=== PATIENT | male | born 1975 | race Caucasian/White ===

== ENCOUNTER 2018-10-05 21:19 | Observation (INO) ==
[2018-10-05] MEDS ORDERED: Morphine Sulfate Inj 2 MG/ML Vial IV.PUSH ONE (22:28)
--- NOTE | 2018-10-05 22:37 | ED ---
HPI General Chief Complaint: Chest Pain Stated Complaint: Chest Pain Time Seen by Provider: 10/05/18 22:18 Source: patient Mode of arrival: ambulatory Limitations: no limitations History of Present Illness HPI narrative: Patient is a 43-year-old male presenting to the emergency department for evaluation of chest pain. Patient states the pain started 1 hour prior to arrival, he states the pain radiates across his chest wall and feels tight and pressure-like. He rates his pain a 6 out of 10. Patient states the pain started at rest, does not radiate to his arm or jaw. He denies any back pain, abdominal pain, nausea, dizziness, headache, shortness of breath. Patient reports a history of coronary artery disease status post CABG, hypertension, hyperlipidemia, current IV heroin use. Symptoms started abruptly , symptoms are not influenced by activity. No alleviating factors. MD complaint: Reports chest pain STEMI Alert: No Onset (ago): hour(s) Duration: constant Onset: during rest Pain location: Reports left chest and right chest Severity: moderate Severity scale (1-10): 6 Quality: Reports tightness and heaviness Pain radiation: Reports none Relieving factors: nothing Exacerbating factors: nothing Treatments prior to arrival chest pain: Reports none Related Data Home Medications Medication Instructions Recorded Confirmed metoprolol tartrate 25 mg PO BID 10/05/18 10/05/18 Allergies Allergy/AdvReac Type Severity Reaction Status Date / Time penicillin G Allergy Severe Anaphylaxis Verified 10/05/18 21:29 shrimp Allergy Severe Anaphylaxis Verified 10/05/18 21:29 Review of Systems ROS: all other systems reviewed are negative [facility] Medical History Medical History Chronic back pain (Acute) HTN (hypertension) (Acute) Hypercholesteremia (Acute) Myocardial infarction (Acute) Surgical History Surgical History History of cardiac cath (Acute) S/P CABG x 3 (Acute) Social History Social History Substance History: Active Abuse Second Hand Smoke Exposure: Yes Smoking Status: Current every day smoker Tobacco Type: Cigarettes How Often Do You Have a Drink Containing Alcohol: Never Recent Travel in [facility] within the Last 8 Weeks: No Recent Out of Country Travel within the Last 8 Weeks: No Substance Abuse Detail Heroin: Substance Use Status: Active Route Used Substance Abuse: Intravenously Reason for Use: Get High Immunization History Tetanus Immunization: Unsure Exam Narrative Exam Narrative: GENERAL: Well-developed, well-nourished, alert male. Presenting in no acute distress. SKIN: Focused skin assessment warm/dry. HEAD: Atraumatic. Normocephalic. EYES: Pupils equal and round. No scleral icterus. No injection or drainage. ENT: No nasal bleeding or discharge. Mucous membranes pink and moist. NECK: Trachea midline. No JVD. CARDIOVASCULAR: Regular rate and rhythm. Murmur appreciated. RESPIRATORY: No accessory muscle use. Clear to auscultation. Breath sounds equal bilaterally. GASTROINTESTINAL: Abdomen soft, non-tender, nondistended. Hepatic and splenic margins not palpable. MUSCULOSKELETAL: No obvious deformities. No clubbing. No cyanosis. No edema. NEUROLOGICAL: Awake and alert. No obvious cranial nerve deficits. Motor grossly within normal limits. Normal speech. PSYCHIATRIC: Appropriate mood and affect; insight and judgment normal. Course Initial Documented Vital Signs Temperature 99.2 F 10/05/18 21:29 Pulse Rate 96 H 10/05/18 21:29 Respiratory Rate 16 10/05/18 21:29 Blood Pressure 155/64 H 10/05/18 21:29 Pulse Oximetry 98 10/05/18 21:29 Last Documented Vital Signs Temperature 99.2 F 10/05/18 21:29 Pulse Rate 81 10/05/18 23:55 Respiratory Rate 18 10/05/18 23:55 Blood Pressure 111/55 L 10/05/18 23:55 Pulse Oximetry 97 10/05/18 23:55 Medical Decision Making [facility] Narrative Medical decision making narrative: Patient is a 43-year-old male that presented to emerge from for evaluation of chest pain started abruptly 1 hour prior to arrival. Labs and imaging ordered and pending. Patient's vital signs are stable. IV access was established and patient was placed on telemetry to monitor continuous pulse oximetry. Patient was given aspirin, nitroglycerin and morphine. Will reassess. Pt was reassessed and was resting comfortably. VS remain stable. Labs reviewed, no acute findings. Initial EKG reviewed by my attending. Due to patients PMHx and presenting complaint pt will be placed in [facility]. Pt is agreeable. Orders placed. Medical Screen Exam Complete: Yes Emergency Medical Condition: Yes Differential Diagnosis Differential Diagnosis: ACS vs [place] vs arrhythmia vs metabolic abnormality vs substance abuse vs other Medical Records Medical records reviewed: Yes I reviewed the patient's medical records. Lab Data Lab results reviewed: Yes I reviewed the patient's lab results. Result diagrams: 10/05/18 22:40 10/05/18 22:40 Lab Results 10/05/18 10/05/18 10/05/18 Range/Units 22:40 22:40 22:40 WBC 5.9 (4.0-11.0) th/mm3 RBC 5.24 (4.50-5.90) mil/mm3 Hgb 14.9 (13.0-17.0) gm/dL Hct 45.0 (39.0-51.0) % MCV 85.8 (80.0-100.0) fL MCH 28.3 (27.0-34.0) pg MCHC 33.0 (32.0-36.0) % RDW 13.5 (11.6-17.2) % Plt Count 244 (150-450) th/mm3 MPV 8.1 (7.0-11.0) fL Neut % (Auto) 53.1 (16.0-70.0) % Lymph % (Auto) 31.5 (9.0-44.0) % [place] % (Auto) 11.8 H (0.0-8.0) % Eos % (Auto) 3.1 (0.0-4.0) % Baso % (Auto) 0.5 (0.0-2.0) % Neut # (Auto) 3.1 (1.8-7.7) th/mm3 Lymph # (Auto) 1.9 (1.0-4.8) th/mm3 [place] # (Auto) 0.7 (0.0-0.9) th/mm3 Eos # (Auto) 0.2 (0.0-0.4) th/mm3 Baso # (Auto) 0.0 (0.0-0.2) th/mm3 WBC Differential . Differential Comment Auto diff final PT 11.1 (9.8-11.6) sec INR 1.1 Ratio APTT 33.8 H (23.4-31.7) sec Sodium 139 (136-145) meq/L Potassium 4.1 (3.5-5.1) meq/L Chloride 102 (98-107) meq/L Carbon Dioxide 30.9 (21.0-32.0) meq/L Anion Gap 6 (5-15) meq/L BUN 21 H (7-18) mg/dL Creatinine 0.96 (0.60-1.30) mg/dL Estimated GFR 85 L (>89) mL/min Random Glucose 96 (74-106) mg/dL Calcium 8.5 (8.5-10.1) mg/dL Magnesium 2.2 (1.5-2.5) mg/dL Total Bilirubin 0.8 (0.2-1.0) mg/dL AST 64 H (15-37) U/L ALT 93 H (12-78) U/L Alkaline Phosphatase 136 H (45-117) U/L Total Creatine Kinase 243 (39-308) U/L CK-MB (CK-2) 1.8 (0.5-3.6) ng/mL Troponin I Less than 0.02 L (0.02-0.05) ng/mL Total Protein 7.9 (6.4-8.2) g/dL Albumin 3.4 (3.4-5.0) g/dL Lipase 57 L (73-393) U/L Imaging Data Radiologist's impression: Chest X-Ray 10/05/18 22:20 CONCLUSION: No acute cardiopulmonary disease demonstrated. Discharge Plan Discharge Disposition Patient Disposition: ED Admit(ED Internal Use Only) Discharge Condition Condition: Stable Discharge Order Discharge Orders: ED Use Only Admit Order (Routine); Ordered 10/06/18 Ordered By: Opal Chatterjee Discharge Details Diagnosis: Atypical chest pain Physicians Team ED Provider: Nicholas Sheikh ED Midlevel Provider: Oapl Chatterjee Primary Care Provider: Primary Care Elva Monge Attending Provider: Laci Simmons Rxs /Orders / Referrals /Forms Prescriptions: No Action metoprolol tartrate 25 mg Tablet 25 mg PO BID RF: 0 Discharge Instructions Patient Printed Instructions: Chest Pain (ED) Discharge Interventions Interventions: Vital Signs Last Done: 10/05/18 22:22 Status ED Status: Admitted Observation Patient
--- NOTE | 2018-10-05 22:45 | XR ---
EXAM DATE: 10/05/2018 10:35 PM EST AGE/SEX: 43 years / Male INDICATIONS: Chest pain. CLINICAL DATA: This is the patient's initial encounter. Patient reports that signs and symptoms have been present for 1 day and indicates a pain score of 10/10. MEDICAL/SURGICAL HISTORY: Cardiovascular disease. CABG. COMPARISON: [facility] [place], CHEST SINGLE AP, 09/22/2016. . FINDINGS: A single AP view of the chest demonstrates the lungs to be symmetrically aerated without evidence of mass, infiltrate or effusion. The cardiomediastinal contours are unremarkable. Osseous structures a re intact. Patient has had previous median sternotomy and coronary artery bypass graft operation. CONCLUSION: No acute cardiopulmonary disease demonstrated. Electronically signed by: Palmer Dhaliwal MD 10/05/2018 10:44 PM EST
[2018-10-05 22:54] LABS: Baso % (Auto) 0.5 % (0.0-2.0); Eos # (Auto) 0.2 th/mm3 (0.0-0.4); Eos % (Auto) 3.1 % (0.0-4.0); Hemoglobin 14.9 gm/dL (13.0-17.0); Lymph # (Auto) 1.9 th/mm3 (1.0-4.8); Lymph % (Auto) 31.5 % (9.0-44.0); Mean Corpuscular Hemoglobin 28.3 pg (27.0-34.0); Mean Corpuscular Volume 85.8 fL (80.0-100.0); Mean Platelet Volume 8.1 fL (7.0-11.0); Mono # (Auto) 0.7 th/mm3 (0.0-0.9); Mono % (Auto) 11.8 % (0.0-8.0); Neut # (Auto) 3.1 th/mm3 (1.8-7.7); Neut % (Auto) 53.1 % (16.0-70.0); Platelet Count 244 th/mm3 (150-450); Red Blood Count 5.24 mil/mm3 (4.50-5.90); Red Cell Distribution Width 13.5 % (11.6-17.2); White Blood Count 5.9 th/mm3 (4.0-11.0)
[2018-10-05 23:22] LABS: Activated Partial Thrombo Time 33.8 sec (23.4-31.7); INR 1.1 Ratio; Prothrombin Time 11.1 sec (9.8-11.6)
[2018-10-05 23:32] LABS: Alkaline Phosphatase 136 U/L (45-117); Creatine Kinase 243 U/L (39-308); Total Protein 7.9 g/dL (6.4-8.2)
[2018-10-05 23:45] LABS: Alanine Aminotransferase 93 U/L (12-78); Albumin 3.4 g/dL (3.4-5.0); Anion Gap 6 meq/L (5-15); Aspartate Aminotransferase 64 U/L (15-37); Blood Urea Nitrogen 21 mg/dL (7-18); Calcium 8.5 mg/dL (8.5-10.1); Carbon Dioxide 30.9 meq/L (21.0-32.0); Chloride 102 meq/L (98-107); Creatine Kinase MB 1.8 ng/mL (0.5-3.6); Glomerular Filtration Rate 85 mL/min (>89); Glucose,Random 96 mg/dL (74-106); Lipase 57 U/L (73-393); Magnesium 2.2 mg/dL (1.5-2.5); Potassium 4.1 meq/L (3.5-5.1); Sodium 139 meq/L (136-145)
[2018-10-06] MEDS ORDERED: Acetaminophen 500 MG Tablet PO PRN (00:20)
[2018-10-06] MEDS ORDERED: Morphine Inj 4 MG/ML Vial IV.PUSH PRN (00:20)
[2018-10-06 01:00] LABS: Amphetamine Screen,Urine Neg (Neg); Barbiturate Screen,Urine Neg (Neg); Cannabinoid Screen,Urine Neg (Neg); Cocaine Screen,Urine Neg (Neg)
[2018-10-06 01:02] LABS: Bilirubin,Urine Negative (Negative); Clarity,Urine Clear (Clear); Color,Urine Yellow (Yellw/Straw); Glucose,Urine (UA) Negative (Negative); Leukocyte Esterase,Urine Negative (Negative); Mucus,Urine Few /lpf (Occasional); Nitrite,Urine Negative (Negative); Specific Gravity,Urine 1.026 (1.002-1.035); Urobilinogen,Urine 4 or Greater mg/dL (Less than 2)
[2018-10-06 01:03] LABS: Opiate Screen,Urine Pos (Neg)
[2018-10-06 02:47] LABS: Creatine Kinase 220 U/L (39-308)
[2018-10-06 07:00] LABS: Creatine Kinase 165 U/L (39-308)
--- NOTE | 2018-10-06 09:57 | P.HPCA ---
History of Present Illness Primary Care Physician: No Primary Care Physician Chief Complaint: Chest pain History of Present Illness: This is a 43-year-old male with history of CAD with a three-vessel bypass July 2016, hypertension, hyperlipidemia, and continued IV heroin abuse that presents to ED to be evaluated for chest discomfort. The pain began yesterday and lasted a couple hours. It was a pressure. It was a 6 out of 10. Discomfort did not radiate. Found nothing to worsen or improve it. He rarely admits to continued IV heroin abuse. States he injects on average twice a day and last time injecting heroin was yesterday morning. States that he had a recent cardiac workup at a [facility] near [place] and believes it was the summer. States that he had a stress test and was advised to have cardiac catheterization afterwards however he states he has no insurance and no money and left. He does not follow with hardwood finisher. He takes metoprolol and aspirin daily and sometimes will take his cholesterol medicine if he has it on hand. Currently denies chest discomfort. History of CAD with three-vessel bypass July 2016. Hypertension, hyperlipidemia, IV drug abuse. Noncompliance. Denies diabetes. There is family history of CAD. Continues IV heroin abuse. Continues smoke 1 pack of cigarettes a day and has done so for 25-30 years. States that he does not drink alcohol. - Diagnosis (1) Chest pain (2) CAD (coronary artery disease) (3) Status post coronary artery bypass graft (4) Hypertension (5) Hyperlipidemia (6) Heroin abuse Review of Systems General: Patient denies fevers, chills, and recent travel. HEENT: Patient denies headache, sore throat, difficulty swallowing. Cardiovascular: Has the chest discomfort as mentioned above. Denies sensation of heart beating rapidly or irregularly. No syncope. Denies diaphoresis. Respiratory: He was short of breath. Denies inspirational chest discomfort. Denies coughing wheezing or hemoptysis. GI: Patient denies nausea, vomiting, diarrhea, abdominal pain, bloody stools. Musculoskeletal: Patient denies joint pain or edema. Denies calf pain or edema. Neurovascular: Patient denies numbness, tingling, weakness in extremities. Denies headache. Endocrine: Denies polyuria and polydipsia. Hematologic: Denies easy bruising. Skin: Denies rash or itching. PMFSH - History History Provided By: Patient - Medical History Medical History: Medical History (Last Reviewed 10/05/18 @ 23:32 by MILLICENT Crodero) Chronic back pain HTN (hypertension) Hypercholesteremia Myocardial infarction - Surgical History Surgical History: Surgical History (Last Reviewed 10/05/18 @ 23:32 by MILLICENT Cordero) History of cardiac cath S/P CABG x 3 - Tobacco History Second Hand Smoke Exposure: Yes Tobacco Use In Past 30 Days: Yes Smoking Status: Current every day smoker Tobacco Type: Cigarettes - Alcohol History How Often Do You Have a Drink Containing Alcohol: Never - Substance Use History Substance History: Active Abuse - Substance Use Type Heroin Status: Active Route Used: Intravenously Reason for Use: Get High - Travel History Recent Travel in the [place] Within the Last 8 Weeks: No Recent Travel Out of the Country Within the Last 8 Weeks: No - Immunization History Tetanus Immunization: Unsure Medications and Allergies Active Medications: Active Medications Acetaminophen (Tylenol) 500 mg PO Q4H PRN PRN Reason: HEADACHE Morphine Sulfate (Morphine Inj) 2 mg IV.PUSH Q4H PRN PRN Reason: PAIN SCALE 8 TO 10 Ondansetron HCl (Zofran Inj) 4 mg IV.PUSH Q6H PRN PRN Reason: NAUSEA Sodium Chloride (Ns Flush) 2 ml IV.FLUSH UNSCH PRN PRN Reason: FLUSH AFTER USING IV ACCESS Sodium Chloride (Ns Flush) 2 ml IV.FLUSH PRN PRN PRN Reason: FLUSH AFTER USING IV ACCESS Sodium Chloride (Ns Flush) 2 ml IV.FLUSH BID SKYE Allergies Allergy/AdvReac Type Severity Reaction Status Date / Time penicillin G Allergy Severe Anaphylaxis Verified 10/05/18 21:29 shrimp Allergy Severe Anaphylaxis Verified 10/05/18 21:29 Home Medications Medication Instructions Recorded Confirmed Type metoprolol tartrate 25 mg PO BID 10/05/18 10/05/18 History Exam Vital signs: Vital Signs 10/05/18 21:29 10/05/18 22:22 10/05/18 22:32 Temperature 99.2 F Pulse Rate 96 H 86 Respiratory Rate 16 18 Blood Pressure 155/64 H 125/73 Pulse Oximetry 98 99 98 10/05/18 23:55 10/06/18 02:00 10/06/18 03:15 Temperature Pulse Rate 81 79 74 Respiratory Rate 18 18 18 Blood Pressure 111/55 L 104/70 105/78 Pulse Oximetry 97 98 10/06/18 05:59 10/06/18 08:10 Temperature 98.4 F Pulse Rate 76 70 Respiratory Rate 16 15 Blood Pressure 94/50 L 105/57 L Pulse Oximetry Intake & Output 10/05/18 10/06/18 10/06/18 18:59 06:59 18:59 Weight 67 kg Narrative: GENERAL: This is a well-nourished, well-developed patient, in no apparent distress. Patient speaks in clear complete sentences. Patient is pleasant. HEENT: Head is atraumatic and normocephalic. Neck is supple without lymphadenopathy and trachea is midline. No JVD or carotid bruits. CARDIOVASCULAR: Regular rate and rhythm without murmurs, gallops, or rubs. RESPIRATORY: Clear to auscultation. Breath sounds equal bilaterally. No wheezes , rales, or rhonchi. Chest wall is nontender. No use of accessory muscles. GASTROINTESTINAL: Abdomen is nontender, nondistended. Abdomen soft. No obvious pulsatile mass or bruit. No CVA tenderness. Strong femoral pulses bilaterally. Normal bowel sounds in all quadrants. MUSCULOSKELETAL: Patient is moving upper and lower extremities freely. No calf tenderness or edema, no Homans sign. Strong pulses in upper and lower extremities. NEUROLOGICAL: Patient is alert and oriented. Cranial nerves 2-12 are grossly intact. No focal deficits and speech is clear. SKIN: No rash and turgor is normal. Results 10/05/18 22:40 10/05/18 22:40 Cardiac Enzymes 10/05/18 10/06/18 10/06/18 Range/Units 22:40 02:00 06:00 AST 64 H (15-37) U/L CK-MB (CK-2) 1.8 (0.5-3.6) ng/mL Troponin I Less than 0.02 L Less than 0.02 L Less than 0.02 L (0.02-0.05) ng/mL Coagulation 10/05/18 Range/Units 22:40 PT 11.1 (9.8-11.6) sec APTT 33.8 H (23.4-31.7) sec CBC 10/05/18 Range/Units 22:40 WBC 5.9 (4.0-11.0) th/mm3 RBC 5.24 (4.50-5.90) mil/mm3 Hgb 14.9 (13.0-17.0) gm/dL Hct 45.0 (39.0-51.0) % Plt Count 244 (150-450) th/mm3 Neut # (Auto) 3.1 (1.8-7.7) th/mm3 Lymph # (Auto) 1.9 (1.0-4.8) th/mm3 [place] # (Auto) 0.7 (0.0-0.9) th/mm3 Eos # (Auto) 0.2 (0.0-0.4) th/mm3 Baso # (Auto) 0.0 (0.0-0.2) th/mm3 Comprehensive Metabolic Panel 10/05/18 Range/Units 22:40 Sodium 139 (136-145) meq/L Potassium 4.1 (3.5-5.1) meq/L Chloride 102 (98-107) meq/L Carbon Dioxide 30.9 (21.0-32.0) meq/L BUN 21 H (7-18) mg/dL Creatinine 0.96 (0.60-1.30) mg/dL Calcium 8.5 (8.5-10.1) mg/dL AST 64 H (15-37) U/L ALT 93 H (12-78) U/L Alkaline Phosphatase 136 H (45-117) U/L Total Protein 7.9 (6.4-8.2) g/dL Albumin 3.4 (3.4-5.0) g/dL Intake and Output 10/05/18 10/06/18 10/06/18 22:59 06:59 14:59 Other: Weight 67 kg - Imaging and Cardiology Imaging: Impressions Chest X-Ray 10/05/18 22:20 CONCLUSION: No acute cardiopulmonary disease demonstrated. EKG interpretations - EKG EKG shows: sinus rhythm (EKG is a sinus rhythm without significant ST segment depressions or elevations.) Caprini VTE Risk Assessment Caprini VTE Risk Assessment: No/Low Risk (score <= 1) Caprini Risk Assessment Model: Point Value = 1 Point Value = 2 Point Value = 3 Point Value = 5 Age 41-60 Minor surgery BMI > 25 kg/m2 Swollen legs Varicose veins or History of unexplained or recurrent spontaneous Oral contraceptives or hormone replacement Sepsis (< 1 month) Serious lung disease, including pneumonia (< 1 month) Abnormal pulmonary function Acute myocardial infarction Congestive heart failure (< 1 month) History of inflammatory bowel disease Medical patient at bed rest Age 61-74 Arthroscopic surgery Major open surgery (> 45 min) Laparoscopic surgery (> 45 min) Malignancy Confined to bed (> 72 hours) Immobilizing plaster cast Central venous access Age >= 75 History of VTE Family history of VTE Factor V Leiden Prothrombin 25127T Lupus anticoagulant Anticardiolipin antibodies Elevated serum homocysteine Heparin-induced thrombocytopenia Other congenital or acquired thrombophilia Stroke (< 1 month) Elective arthroplasty Hip, pelvis, or leg fracture Acute spinal cord injury (< 1 month) Prophylaxis Regimen: Total Risk Factor Score Risk Level Prophylaxis Regimen 0-1 Low Early ambulation 2 Moderate Order ONE of the following: *Sequential Compression Device (SCD) *Heparin 5000 units SQ BID 3-4 Higher Order ONE of the following medications: *Heparin 5000 units SQ TID *Enoxaparin/Lovenox 40 mg SQ daily (WT < 150 kg, CrCl > 30 mL/min) *Enoxaparin/Lovenox 30 mg SQ daily (WT < 150 kg, CrCl > 10-29 mL/min) *Enoxaparin/Lovenox 30 mg SQ BID (WT < 150 kg, CrCl > 30 mL/min) AND/OR *Sequential Compression Device (SCD) 5 or more Highest Order ONE of the following medications: *Heparin 5000 units SQ TID (Preferred with Epidurals) *Enoxaparin/Lovenox 40 mg SQ daily (WT < 150 kg, CrCl > 30 mL/min) *Enoxaparin/Lovenox 30 mg SQ daily (WT < 150 kg, CrCl > 10-29 mL/min) *Enoxaparin/Lovenox 30 mg SQ BID (WT < 150 kg, CrCl > 30 mL/min) AND *Sequential Compression Device (SCD) Assessment and Plan - Assessment (1) Chest pain Code(s): R07.9 - Chest pain, unspecified Status: Acute (2) CAD (coronary artery disease) Code(s): I25.10 - Atherosclerotic heart disease of [place] coronary artery without angina pectoris Status: Acute (3) Status post coronary artery bypass graft Code(s): Z95.1 - Presence of aortocoronary bypass graft Status: Acute (4) Hypertension Code(s): I10 - Essential (primary) hypertension Status: Acute (5) Hyperlipidemia Code(s): E78.5 - Hyperlipidemia, unspecified Status: Acute (6) Heroin abuse Code(s): F11.10 - Opioid abuse, uncomplicated Status: Acute - Plan * Chest pain: Patient has had serial cardiac enzymes and EKGs for ruling out purposes. He was seen by Dr. Parks of cardiology and the chest pain center. After discussing with him and examining him Dr. Parks believe the patient will be a poor candidate for revascularization if needed as he is noncompliant and continue to abuse IV heroin. However we will get records to see if he did have a stress test and if so was abnormal and if cardiac catheterization was recommended. Further plan pending results of his records. * CAD: History of prior CABG. He will need to follow-up with a hardwood finisher on outpatient basis. He should continue his medications as instructed by his hardwood finisher. We are waiting to obtain records from a recent Cardiologic workup at a [facility] facility. * Hypertension: Continue medication. * Hyperlipidemia: Continue medication. * Tobacco abuse: Patient counseled on the importance of smoking cessation. * IV heroin use: Patient has been counseled on the importance of never using IV heroin or any other illicit drugs again as this could kill him. Patient is stable at this time. He is agreeable to this plan.
[2018-10-06] MEDS ORDERED: Aspirin 325 MG Tablet PO SCH (10:30)
[2018-10-06] MEDS ORDERED: Sod Chloride 0.9% Inj 1,000 ML IV.CONT SCH (12:30)
[2018-10-06] MEDS ORDERED: Regadenoson Inj 0.4 MG/5 ML Syringe IV.PUSH ONE (13:52)
--- NOTE | 2018-10-06 15:51 | NM ---
EXAM DATE: 10/06/2018 3:47 PM EST AGE/SEX: 43 years / Male INDICATIONS:Angina. Myocardial infarction CLINICAL DATA: This is the patient's initial encounter. Patient reports that signs and symptoms have been present for 1 day and indicates a pain score of 7/10. MEDICAL/SURGICAL HISTORY: Hypertension. Coronary artery stent. CABG. COMPARISON: No prior exams available for comparison. DOSE: 8.6 mCi Tc 99m Myoview at rest 26.4 mCi [id number] at stress 0.4 mg Lexiscan STRESS SYMPTOMS: Dyspnea. EJECTION FRACTION: 61 % TECHNIQUE: The patient underwent pharmacologic stress with infusion of prescribed dose. Continuous ECG tracing was monitored during stress. Gated SPECT imaging was performed after stress and conventi onal SPECT imaging was performed at rest. The examination was performed on a SPECT/CT scanner, both attenuation and non-corrected datasets were reviewed. FINDINGS: Distribution: The maximum perfused segment at stress is in the inferior wall. Perfusion Study: The pattern of perfusion at stress is within normal limits. Gated Study: There are intact wall motion and wall thickening without hypokinetic or dyskinetic segm ents. The ejection fraction is calculated at 61%. RISK CATEGORY: Low (<1% Annual Motality Rate) CONCLUSION: No areas of ischemia are seen. Electronically signed by: Palmer Brink MD 10/06/2018 3:50 PM EST
--- NOTE | 2018-10-06 16:59 | TR ---
Date Performed: 10/06/2018 Time Performed: 14:01:16 DOCTOR: Xiao Parks DRUG LIST: CLINICAL HISTORY: REASON FOR TEST: REASON FOR ENDING: OBSERVATION: CONCLUSION: Lexiscan stress test was performed under standard four minute protocol. Radionuclid e was injected one minute prior to ending the test. No electrocardiographic abormalities were present to suggest ischemia, though T wave inversions were noted. Nuclear imaging and interpretation are jaci bauer. COMMENTS: Lexiscan stress test was performed under standard four minute protocol. Radionuclide was injected one minute prior to ending the test. No electrocardiographic abormalities were present t o suggest ischemia, though T wave inversions were noted. Nuclear imaging and interpretation are yung delgado.
--- NOTE | 2018-10-06 17:07 | ECG ---
Date Performed: 10/06/2018 Time Performed: 02:09:21 PTAGE: 43 years EKG: Sinus rhythm WITH SINUS ARRHYTHMIA MODERATE T-WAVE ABNORMALITY, CONSIDER ANTERIOR ISCHEMIA ABNORMAL ECG Since PREVIOUS TRACING , no significant change noted PREVIOUS TRACIN09/22/2016 21.08 DOCTOR: Xiao Parks Interpretating Date/Time 10/06/2018 17:06:16
--- NOTE | 2018-10-06 17:07 | ECG ---
Date Performed: 10/06/2018 Time Performed: 05:44:22 PTAGE: 43 years EKG: SINUS BRADYCARDIA WITH SINUS ARRHYTHMIA PROLONGED QT INTERVAL ABNORMAL ECG Since PREVIOUS TRACING , no significant change noted PREVIOUS TRACIN10/06/2018 02.09 DOCTOR: Xiao Parks Interpretating Date/Time 10/06/2018 17:05:34
--- NOTE | 2018-10-06 17:08 | ECG ---
Date Performed: 10/05/2018 Time Performed: 21:37:16 PTAGE: 43 years EKG: Sinus rhythm NORMAL ECG Since PREVIOUS TRACING , no significant change noted DOCTOR: Xiao Parks Interpretating Date/Time 10/06/2018 17:06:42
== END 2018-10-06 18:44 | disposition home or self-care (01) ==
LOC: NEDA 21:19 → NEPE 21:19 → NEDA 10-06 02:38 → NEDH 10-06 04:59 → NEPFCDU 10-06 10:58
PROVIDERS: ADMIT Internal Medicine Cardiovascular Disease; ATTEND Internal Medicine Cardiovascular Disease
DX: Z79.82 Long term (current) use of aspirin; E78.00 Pure hypercholesterolemia, unspecified; Z95.1 Presence of aortocoronary bypass graft; Z91.19 Patient's noncompliance with other medical treatment and regimen; I10 Essential (primary) hypertension; R94.31 Abnormal electrocardiogram [ECG] [EKG]; F11.10 Opioid abuse, uncomplicated; M54.9 Dorsalgia, unspecified; Z82.49 Family history of ischemic heart disease and other diseases of the circulatory system; R07.89 Other chest pain; E78.5 Hyperlipidemia, unspecified; I25.10 Atherosclerotic heart disease of native coronary artery without angina pectoris; I25.2 Old myocardial infarction; F17.210 Nicotine dependence, cigarettes, uncomplicated; G89.29 Other chronic pain